=== PATIENT | female | born 1965 | race Two or more races ===

== ENCOUNTER 2025-02-19 17:19 | Emergency (ER) | payer OTHER ==
[~2025-02-19] VITALS: Ht 162.6 cm; Wt 78.0 kg
[2025-02-19] MEDS ORDERED: KETOROLAC TROMETHAMINE 30 MG VIAL IM STA (17:47)
[2025-02-19] MEDS ORDERED: KETOROLAC TROMETHAMINE 30 MG VIAL ONE (17:55)
== END 2025-02-19 18:04 | disposition home or self-care (01) ==
LOC: ER 17:20
DX: M77.10 Lateral epicondylitis, unspecified elbow (principal)